=== PATIENT | female | born 1985 | race Caucasian/White ===

== ENCOUNTER 2023-12-17 10:50 | Outpatient (CLI) | payer BC | END 2023-12-17 10:51 | disposition home or self-care (01) | LOC: CSHMAMMO 10:50 | PROVIDERS: ATTEND Obstetrics & Gynecology | DX: Z12.31 Encounter for screening mammogram for malignant neoplasm of breast (principal) | CPT/HCPCS: 77063; 77067 ==

== ENCOUNTER 2025-01-30 07:40 | Outpatient (CLI) | payer BC | END 2025-01-30 07:41 | disposition home or self-care (01) | LOC: CSHMAMMO 07:40 | PROVIDERS: ATTEND Obstetrics & Gynecology | DX: N64.89 Other specified disorders of breast (principal) | CPT/HCPCS: G0279 ==